=== PATIENT | female | born 1995 | race African-American/Black ===

== ENCOUNTER 2017-06-25 18:15 | Emergency (ER) | payer MEDICAID | END 2017-06-25 19:51 | disposition home or self-care (01) | LOC: D.ER 18:15 | DX: M25.511 Pain in right shoulder (principal) ==

== ENCOUNTER 2019-08-14 18:08 | Emergency (ER) | payer MEDICAID ==
[~2019-08-14] VITALS: Ht 170.2 cm; Wt 171.8 kg
[2019-08-14 18:33] VITALS: Ht 170.2 cm; Wt 171.8 kg
[2019-08-14] MEDS ORDERED: SYNTHROID50 MCG PO (18:35)
[2019-08-14 19:25] LABS: BASOPHILS 0.2 % (0-2); EOSINOPHILS 1.5 % (0-7); IMMATURE GRANULOCYTES 0.2 % (0-5); LYMPHOCYTES 28.9 % (15-50); MCH 25.9 pg (26.0-34.0); MCHC 30.8 g/dL (31.0-37.0); MCV 84.1 fL (80.0-100.0); MEAN PLATELET VOLUME 9.1 fL (7.4-10.4); MONOCYTES 8.8 % (2-11); NEUTROPHILS 60.4 % (40-80); PLATELET COUNT 366 10x3/uL (130-400); RBC 4.64 10x6/uL (4.00-5.40); RDW 15.1 % (11.5-14.5); WBC 12.2 10x3/uL (4.8-10.8)
[2019-08-14 19:49] LABS: HCG SERUM NEGATIVE (NEGATIVE)
[2019-08-14 19:52] LABS: ALBUMIN 3.3 g/dL (3.4-5.0); ALKALINE PHOSPHATASE 105 U/L (46-116); ALT (SGPT) 23 U/L (10-68); AMYLASE - SERUM 64 U/L (25-115); BILIRUBIN - TOTAL 0.16 mg/dL (0.2-1.3); CALC OSMOLALITY 271 mosm/kg (275-300); CALCIUM 8.8 mg/dL (8.5-10.1); CHLORIDE - SERUM 104 mmol/L (98-107); CREATININE - SERUM 0.9 mg/dL (0.6-1.3); GLUCOSE 93 mg/dL (74-106); LIPASE 127 U/L (73-393); POTASSIUM - SERUM 3.7 mmol/L (3.5-5.1); PROTEIN - SERUM 8.2 g/dL (6.4-8.2); SODIUM 138 mmol/L (136-145); eGFR NON AFRICAN AMERICAN 80 mL/min (90-120)
[2019-08-14 20:07] LABS: UREA NITROGEN 0 mg/dL (7-18)
[2019-08-14 20:31] LABS: APPEARANCE CLEAR (CLEAR); COLOR YELLOW (YELLOW); GLUCOSE NEGATIVE (NEGATIVE); KETONE NEGATIVE (NEGATIVE); NITRITE NEGATIVE (NEGATIVE); PROTEIN NEGATIVE (NEGATIVE); SPECIFIC GRAVITY 1.015 (1.005-1.020); UROBILINOGEN NORMAL (NORMAL)
[2019-08-14 20:32] LABS: BILIRUBIN NEGATIVE (NEGATIVE)
[2019-08-14 21:26] LABS: HCG URINE NEGATIVE (NEGATIVE)
[2019-08-14 22:59] VITALS: BP 154/103
== END 2019-08-14 23:00 | disposition home or self-care (01) ==
LOC: D.ER 18:08
PROVIDERS: Family Medicine
DX: M54.9 Dorsalgia, unspecified (principal); E34.9 Endocrine disorder, unspecified